=== PATIENT | female | born 1950 | race Caucasian/White ===

== ENCOUNTER → 2016-05-13 | Outpatient (CLI) | payer OTHER ==
--- NOTE | 2016-05-13 12:59 | RAD ---
Indication six-month follow-up left breast since nipple inversion associated with an injury. Targeted ultrasound of the left breast was performed. Note is made of a previous examination 11/14/2015. The patient reports that the inversion associated with the left nipple has improved over the last several months. No abnormality is seen in the area examined.. Follow-up screening mammography suggested 09/11/2016 new graft impression: Normal targeted ultrasound left breast
== END | disposition home or self-care (01) ==
LOC: KCIC US 12:29
PROVIDERS: ATTEND Specialist
DX: R92.8 Other abnormal and inconclusive findings on diagnostic imaging of breast (principal); N63 Unspecified lump in breast
CPT/HCPCS: 76641